=== PATIENT | female | born 1990 | race Caucasian/White ===

== ENCOUNTER 2020-07-15 09:16 | Emergency (ER) | payer OTHER ==
--- NOTE | 2020-07-15 11:19 | EDPHYS ---
Physician Documentation [facility] Name: Ayala Adam Age: 30 yrs Sex: Female : 1990 Arrival Date: 07/15/2020 Time: 09:24 Bed 26 Private MD: ED Physician Orlando Albright HPI: 07/15 11:15 This 30 yrs old Female presents to ER via Ambulatory with complaints of poss jmm ring worm. 11:15 The patient's rash thought to be caused by an unknown cause. The rash is located on the jmm back. Onset: The symptoms/episode began/occurred gradually, 1 week(s) ago. Associated signs and symptoms: Pertinent positives: itching, Pertinent negatives: fever, Pain swelling of lips, swelling of throat, swelling of tongue, vomiting, wheezing. Patient states she applied triple abx ointment with no relief. ROS: 11:15 Constitutional: Negative for fever, chills, and weight loss, Cardiovascular: Negative [facility] for chest pain, palpitations, and edema, Respiratory: Negative for shortness of breath, cough, wheezing, and pleuritic chest pain. 11:15 Skin: Positive for rash. 11:15 All other systems are negative. Exam: 11:15 Constitutional: This is a well developed, well nourished patient who is awake, alert, jmm and in no acute distress. Head/Face: atraumatic. Eyes: EOMI, no conjunctival erythema appreciated ENT: Moist Mucus Membranes Neck: Trachea midline, Supple Chest/axilla: Normal chest wall appearance and motion. Cardiovascular: Regular rate and rhythm. No edema appreciated Respiratory: Normal respirations, no respiratory distress appreciated Abdomen/GI: Non distended, soft Back: Normal ROM 11:15 Skin: lesion(s), rash can be described as ringworm. 11:15 Neuro: Orientation: is normal, Mentation: is normal, Memory: is normal. 11:15 Psych: Behavior/mood is pleasant, cooperative. Vital Signs: 09:30 BP 115 / 78; Pulse 100; Resp 16; Temp 97.9; Pulse Ox 100% ; hb MDM: 11:14 Patient medically screened. [facility] 11:17 Data reviewed: vital signs, nurses notes. Counseling: I had a detailed discussion with christy the patient and/or guardian regarding: the historical points, exam findings, and any diagnostic results supporting the discharge/admit diagnosis, the need for outpatient follow up, to return to the emergency department if symptoms worsen or persist or if there are any questions or concerns that arise at home. ED course: Patient is alert and non toxic in appearance in the ED. Rash appears consistent with ringworm. Patient will be prescribed antifungals and advised to follow up with pcp and otherwise given strict return precautions. Patient understood and agrees with the plan of care. . Administered Medications: No medications were administered Disposition: 15:19 Co-signature as Attending Physician, Orlando Albright MD I agree with the assessment and kdr plan of care. Disposition: 07/15/20 11:18 Discharged to Home. Impression: Rash and other nonspecific skin eruption. - Condition is Stable. - Discharge Instructions: Rash, Body Ringworm. - Prescriptions for Clotrimazole 1 % Topical Cream - Apply to affected area 1 application by TOPICAL route every 12 hours; 15 gram. Hydroxyzine HCl 25 mg Oral Tablet - take 1 tablet by ORAL route every 6 hours As needed; 30 tablet. - Medication Reconciliation Form, Thank You Letter, Antibiotic Education, Prescription Opioid Use form. - Follow up: Private Physician; When: 2 - 3 days; Reason: Recheck today's complaints, Continuance of care, Re-evaluation by your physician. Signatures: Roxana Raphael RN RN dm5 Orlando Albright MD MD [facility] Modesto Olson PA PA jmm Corrections: (The following items were deleted from the chart) 11:44 11:18 07/15/2020 11:18 Discharged to Home. Impression: Rash and other nonspecific skin dm5 eruption. Condition is Stable. Forms are Medication Reconciliation Form, Thank You Letter, Antibiotic Education, Prescription Opioid Use. Follow up: Private Physician; When: 2 - 3 days; Reason: Recheck today's complaints, Continuance of care, Re-evaluation by your physician. christy
--- NOTE | 2020-07-15 11:19 | ER ---
Nurse's Notes [facility] Name: Ayala Adam Age: 30 yrs Sex: Female : 1990 Arrival Date: 07/15/2020 Time: 09:24 Bed 26 Private MD: Diagnosis: Rash and other nonspecific skin eruption Presentation: 07/15 09:30 Chief complaint: itchy rash on left shoulder x 1 week. Coronavirus screen: At this hb time, the client does not indicate any symptoms associated with coronavirus-19. Ebola Screen: No symptoms or risks identified at this time. Initial Sepsis Screen: Does the patient meet any 2 criteria? No. Patient's initial sepsis screen is negative. Does the patient have a suspected source of infection? No. Patient's initial sepsis screen is negative. Risk Assessment: Do you want to hurt yourself or someone else? Patient reports no desire to harm self or others. Onset of symptoms was July 09, 2020. 09:30 Method Of Arrival: Ambulatory hb 09:30 Acuity: DANILO 4 hb Vital Signs: 09:30 BP 115 / 78; Pulse 100; Resp 16; Temp 97.9; Pulse Ox 100% ; hb ED Course: 09:24 Patient arrived in ED. ds1 09:31 Triage completed. 10:54 Modesto Olson PA is PHCP. [facility] 10:54 Orlando Albright MD is Attending Physician. [facility] 10:56 Roxana Raphael, RN is Primary Nurse. dm5 Administered Medications: No medications were administered Outcome: 11:18 Discharge ordered by . [facility] 11:44 Patient left the ED. dm5 Signatures: Roxana Raphael, RN RN dm5 Modesto Olson PA PA jmm [place], Demi ds1 Rosemarie Maddox RN RN hb
[2020-07-15 13:19] VITALS: BP 115/78; TEMP 97.9; O2SAT 100
== END 2020-07-15 11:44 | disposition home or self-care (01) ==
LOC: ER 09:16
DX: R21 Rash and other nonspecific skin eruption (principal)
CPT/HCPCS: 99281